=== PATIENT | male | born 1975 | race Caucasian/White ===

== ENCOUNTER 2020-07-03 10:02 | Outpatient (CLI) | payer BC, SELFPAY ==
[2020-07-03 10:57] LABS: SARS-CoV-2 Ag Negative (Negative)
[2020-07-03 12:08] LABS: Influenza Control Valid (Valid)
== END 2020-07-03 10:03 | disposition home or self-care (01) ==
PROVIDERS: PCP Family Medicine; Visit Provider Family Medicine
DX: R50.9 Fever, unspecified (principal); R53.83 Other fatigue; Z20.828 Contact with and (suspected) exposure to other viral communicable diseases
CPT/HCPCS: 87426; 87804